=== PATIENT | female | born 1970 | race Caucasian/White ===

== ENCOUNTER 2024-08-01 04:56 | Emergency (ER) | payer MEDICAID, OTHER ==
[~2024-08-01] VITALS: Ht 165.1 cm; Wt 63.0 kg
[2024-08-01 04:58] VITALS: O2SAT 99
[2024-08-01] MEDS: ACETAMINOPHEN WITH CODEINE 300/30MG TABLET PO ONE (06:01)
[2024-08-01] MEDS: IBUPROFEN 400MG TABLET PO ONE (06:18)
[2024-08-01] MEDS ORDERED: IBUP-2028 PO (06:57)
[2024-08-01 07:45] LABS: BASOPHILS % 0.9 % (0.0-2.0); EOSINOPHILS % 4.3 % (0.0-5.0); HEMATOCRIT. 40.9 % (36.0-48.0); HEMOGLOBIN. 13.3 g/dL (12.0-16.0); LYMPHOCYTES % 24.8 % (20.0-50.0); MEAN CORPUSCULAR HEMOGLOBIN 29.5 pg (28.0-32.0); MEAN CORPUSCULAR HGB CONC 32.5 g/dL (31.0-37.0); MEAN CORPUSCULAR VOLUME 90.6 fL (81.0-99.0); MEAN PLATELET VOLUME 7.9 fl (7.4-10.4); MONOCYTES % 7.1 % (2.0-8.0); NEUTROPHILS % 62.9 % (40.0-76.0); PLATELET 248 x1000/uL (130-400); RED BLOOD CELL COUNT 4.51 mill/uL (4.2-5.4); RED CELL DISTRIBUTION WIDTH 13.2 % (11.6-14.6); WHITE BLOOD COUNT 5.5 x1000/uL (4.5-11.0)
[2024-08-01 07:59] LABS: CHLORIDE 106 mEq/L (98-107); POTASSIUM 3.9 mEq/L (3.5-5.1); SODIUM 138 mEq/L (136-145)
[2024-08-01 08:00] LABS: CARBON DIOXIDE 29 mEq/L (21-32)
[2024-08-01 08:05] LABS: CREATININE 0.9 mg/dL (0.6-1.0); GLUCOSE 90 mg/dL (70-105)
[2024-08-01 08:06] LABS: UREA NITROGEN BLOOD 16 mg/dL (9-23)
[2024-08-01] MEDS: HYDROCODONE/ACETAMINOPHEN 5/325MG TABLET PO ONE (08:14)
[2024-08-01 11:56] VITALS: BP 134/74; PULSE 77; RESP 17; TEMP 37.05852; O2SAT 95
== END 2024-08-01 12:13 | disposition short-term general hospital (02) ==
LOC: ER 05:06 → CANBEDREQ 09:17 → ER 12:13
DX: S93.402A Sprain of unspecified ligament of left ankle, initial encounter (principal); X58.XXXA Exposure to other specified factors, initial encounter; Y93.89 Activity, other specified; Y92.89 Other specified places as the place of occurrence of the external cause; Y99.8 Other external cause status
CPT/HCPCS: 80048; 85025; 36415; 73610; 73630; 99285; Z7610 ×3

== ENCOUNTER 2024-09-10 12:19 | Emergency (ER) | payer OTHER ==
[~2024-09-10] VITALS: Ht 167.6 cm; Wt 85.0 kg
[~2024-09-10 12:19] MED LIST: IBUP-2028 PO
[2024-09-10 12:27] VITALS: TEMP 98.5; O2SAT 100
[2024-09-10] MEDS ORDERED: OXYC-100 MT (14:11)
[2024-09-10] MEDS ORDERED: IBUP-2028 MT (14:13)
[2024-09-10 14:46] VITALS: BP 123/60; PULSE 80; RESP 18
[2024-09-10] MEDS: OXYCODONE HCL/ACETAMINOPHEN 5/325MG TABLET PO ONE (14:46)
== END 2024-09-10 16:08 | disposition home or self-care (01) ==
LOC: ER 12:19
DX: R50.9 Fever, unspecified (principal); Z79.1 Long term (current) use of non-steroidal anti-inflammatories (NSAID); Z48.01 Encounter for change or removal of surgical wound dressing
CPT/HCPCS: 99283; Z7610

== ENCOUNTER 2024-09-14 17:21 | Emergency (ER) | payer OTHER ==
[~2024-09-14] VITALS: Ht 152.4 cm; Wt 68.0 kg
[~2024-09-14 17:21] MED LIST changes: +IBUP-2028 MT; +OXYC-100 MT
[2024-09-14 17:25] VITALS: BP 136/82; PULSE 88; RESP 16; TEMP 98.3; O2SAT 100
== END 2024-09-14 20:49 | disposition left against medical advice (07) ==
LOC: ER 17:21
DX: Z48.89 Encounter for other specified surgical aftercare (principal); Z53.21 Procedure and treatment not carried out due to patient leaving prior to being seen by health care provider